=== PATIENT | female | born 1975 | race African-American/Black ===

== ENCOUNTER 2019-04-08 12:05 | Inpatient (IN) | payer BC, SELFPAY ==
--- OUTSIDE RECORDS SUMMARY | 2019-04-08 12:07 | XMS REPORT ---
:1975 [facility] Address [address] [place] [address] Care Team Providers Name Role Phone Unavailable Unavailable Unavailable Problems This patient has no known problems. Allergies, Adverse Reactions, Alerts This patient has no known allergies or adverse reactions. Medications This patient has no known medications.
[2019-04-08 13:05] LABS: Absolute Lymphocytes (CBC) 1.5 K/uL (0.7-4.9); Basophils % 0.7 % (0-1.3); Hematocrit 20.5 % (36.0-45.0); Lymphocytes % 23.8 % (15.3-44.8); MPV 8.6 fL (7.6-11.3); Protime INR 1.05; RBC Red Blood Cell Count 3.47 M/uL (3.86-4.86)
--- NOTE | 2019-04-08 13:07 | RAD REPORT ---
EXAM DESCRIPTION: RAD - Chest Single View - 04/08/2019 1:01 pm CLINICAL HISTORY: CHEST PAIN Chest pain. COMPARISON: Chest Single View dated 02/05/2017; Chest Single View dated 08/22/2015; Chest Single View dated 07/24/2015; CHEST PA AND LAT 2 VIEW dated 10/03/2014 FINDINGS: Portable technique limits examination quality. The lungs are grossly clear. The heart is normal in size. No displaced fractures. IMPRESSION: No acute intrathoracic process suspected.
[2019-04-08 13:18] LABS: ALT/SGPT 21 U/L (12-78); AST/SGOT 19 U/L (15-37); Albumin 3.5 g/dL (3.4-5.0); Alkaline Phosphatase 61 U/L (45-117); BUN Blood Urea Nitrogen 8 mg/dL (7-18); Bicarbonate 26 mmol/L (21-32); Bilirubin Direct < 0.1 mg/dL (0-0.2); Bilirubin Total 0.3 mg/dL (0.2-1.0); Glucose Level 84 mg/dL (74-106); Magnesium 2.1 mg/dL (1.8-2.4); NT PRO-BNP 65 pg/mL (<125); Potassium 3.8 mmol/L (3.5-5.1); Sodium Level 143 mmol/L (136-145); Troponin (Emerg Dept Use Only) < 0.02 ng/mL (0.0-0.045)
--- NOTE | 2019-04-08 14:13 | ER ---
Nurse's Notes [facility] Name: Sarika Napoles Age: 44 yrs Sex: Female : 1975 Arrival Date: 04/08/2019 Time: 12:06 Bed 8 Private MD: Diagnosis: Anemia in other chronic diseases classified elsewhere;Other chest pain;Dizziness and giddiness Presentation: 04/08 12:11 Presenting complaint: Patient states: i started having chest pain yesterday, it will go tw2 away but now i am having short of breath, and i get real short of breath just going a short distance, i passed out yesterday just sitting in bed because i woke up and didn't remember, i have also dizziness and i can feel and see that i am about to pass out and i just sit, i think my blood levels are low, left msg for Dr. Eng. Transition of care: patient was not received from another setting of care. Onset of symptoms was April 08, 2019. Risk Assessment: Do you want to hurt yourself or someone else? Patient reports no desire to harm self or others. Initial Sepsis Screen: Does the patient meet any 2 criteria? HR > 90 bpm. No. Patient's initial sepsis screen is negative. Does the patient have a suspected source of infection? No. Patient's initial sepsis screen is negative. Care prior to arrival: None. 12:11 Method Of Arrival: Ambulatory tw2 12:11 Acuity: JUSTIN 3 tw2 Triage Assessment: 12:09 General: Appears uncomfortable, well groomed, Behavior is calm, cooperative, tw2 appropriate for age. Pain: Complains of pain in chest. 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 - Social history:: Smoking status: Patient uses tobacco products, cigars, 'occasionally". - Ebola Screening: : Patient denies travel to an Ebola-affected area in the 21 days before illness onset. Screenin:29 Abuse screen: Denies threats or abuse. Nutritional screening: No deficits noted. tw2 Tuberculosis screening: No symptoms or risk factors identified. Fall Risk None identified. Assessment: 12:30 Also complains of shortness of breath. General: Appears in no apparent distress. sv comfortable, well developed, Behavior is calm, cooperative, appropriate for age. Pain: Complains of pain in chest Pain does not radiate. Pain currently is 7 out of 10 on a pain scale. Pain began 2-3 days ago. Is intermittent. Neuro: Level of Consciousness is awake, alert, obeys commands, Oriented to person, place, time, situation, Moves all extremities. Gait is steady, Reports dizziness. Cardiovascular: Heart tones S1 S2 present Patient's skin is warm and dry. Rhythm is sinus tachycardia. Respiratory: Reports shortness of breath on exertion Airway is patent Respiratory effort is even, unlabored, Respiratory pattern is regular, symmetrical, Breath sounds are clear bilaterally. EENT: Lid(s) pale. Derm: Skin is normal, black. 13:21 Reassessment: Patient appears in no apparent distress at this time. Patient and/or hb family updated on plan of care and expected duration. Pain level reassessed. Patient is alert, oriented x 3, equal unlabored respirations, skin warm/dry/pink. 15:00 Reassessment: Patient appears in no apparent distress at this time. Patient and/or sv family updated on plan of care and expected duration. Pain level reassessed. Patient is alert, oriented x 3, equal unlabored respirations, skin warm/dry/pink. 17:04 Reassessment: Patient appears in no apparent distress at this time. Patient and/or sv family updated on plan of care and expected duration. Pain level reassessed. Patient is alert, oriented x 3, equal unlabored respirations, skin warm/dry/pink. Vital Signs: 12:13 BP 122 / 53; Pulse 101; Resp 17; Temp 98.2(TE); Pulse Ox 100% on R/A; Weight 89.81 kg tw2 (R); Height 5 ft. 6 in. (167.64 cm); Pain 7/10; 13:04 BP 121 / 58; Pulse 91; Resp 16; Pulse Ox 100% ; sv 14:15 BP 116 / 53; Pulse 80; Resp 14; Pulse Ox 100% ; sv 15:00 BP 123 / 58; Pulse 79; Resp 14; Pulse Ox 100% ; sv 17:02 BP 115 / 58; Pulse 88 MON; Resp 17; Pulse Ox 100% on R/A; sv 12:13 Body Mass Index 31.96 (89.81 kg, 167.64 cm) tw2 17:02 Sinus Rhythm sv ED Course: 12:06 Patient arrived in ED. as 12:09 Arm band placed on. tw2 12:13 Triage completed. tw2 12:13 EKG completed in triage. Results shown to MD. tw2 12:16 Yon Eduardo MD is Attending Physician. tw4 12:16 Placed in gown. Bed in low position. tw2 12:29 Monique Fraga, HAMMAD is Primary Nurse. sv 12:30 Patient has correct armband on for positive identification. Call light in reach. sv social media developer on. Pulse ox on. NIBP on. Door closed. Warm blanket given. Head of bed elevated. 12:30 Initial lab(s) drawn, by me, sent to lab. T\\T\\S collected, blood band applied to patient. dh3 Inserted saline lock: 20 gauge in right antecubital area, using aseptic technique. Blood collected. 12:30 Patient maintains SpO2 saturation greater than 95% on room air. sv 12:36 X-ray(s) taken. sv 13:09 XRAY Chest (1 view) In Process Unspecified. EDMS 14:05 Prince Newman MD is Hospitalizing Provider. tw4 15:20 Consent for blood and/or blood product transfusion explained by staff, explained by sv physician, signed by patient. 15:20 Inserted saline lock: 20 gauge in left antecubital area, using aseptic technique. sv Flushed left antecubital with 5 ml normal saline. 15:21 IV discontinued, intact, No redness/swelling at site. Pressure dressing applied, to the sv R AC d/t pt request. 17:03 No provider procedures requiring assistance completed. sv Administered Medications: No medications were administered Outcome: 14:06 Decision to Hospitalize by Provider. tw4 17:03 Admitted to Tele accompanied by tech, via wheelchair, room 217, with chart, Report sv called to Red RN 17:03 Condition: stable 17:03 Instructed on the need for admit. 17:26 Patient left the ED. sv Signatures: Dispatcher [employer] EDMS Monique Fraga, RN RN sv Kev, Maral as Marva Nam RN RN Daylin Ortiz RN RN tw2 [facility] Yon Eduardo MD MD tw4 Corrections: (The following items were deleted from the chart) 12:41 12:30 Neuro: Level of Consciousness is awake, alert, obeys commands, Oriented to sv person, place, time, situation, Moves all extremities. Gait is steady, sv
--- NOTE | 2019-04-08 14:13 | EDPHYS ---
Physician Documentation [facility] Name: Sarika Napoles Age: 44 yrs Sex: Female : 1975 Arrival Date: 04/08/2019 Time: 12:06 Bed 8 Private MD: ED Physician Yon Eduardo HPI: 04/08 16:15 This 44 yrs old Black Female presents to ER via Ambulatory with complaints of Chest tw4 Pain, Dizziness. 16:15 The patient or guardian reports chest pain that is located primarily in the anterior tw4 chest wall. Onset: today. The pain does not radiate. Associated signs and symptoms: The patient has no apparent associated signs or symptoms. The chest pain is described as dull. Duration: The patient or guardian reports multiple episodes, that are intermittent, with no pattern. Modifying factors: The symptoms are alleviated by nothing. the symptoms are aggravated by nothing. The patient has experienced similar episodes in the past, a few times, and the symptoms today are exactly the same, to when the patient was apparently diagnosed with anemia. 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 - Social history:: Smoking status: Patient uses tobacco products, cigars, 'occasionally". - Ebola Screening: : Patient denies travel to an Ebola-affected area in the 21 days before illness onset. ROS: 16:16 Constitutional: Negative for fever, chills, and weight loss, Eyes: Negative for injury, tw4 pain, redness, and discharge, Cardiovascular: Negative for chest pain, palpitations, and edema, Respiratory: Negative for shortness of breath, cough, wheezing, and pleuritic chest pain, Abdomen/GI: Negative for abdominal pain, nausea, vomiting, diarrhea, and constipation. Exam: 22:00 Constitutional: This is a well developed, well nourished patient who is awake, alert, tw4 and in no acute distress. Head/Face: Normocephalic, atraumatic. 22:00 Chest/axilla: Normal chest wall appearance and motion. Nontender with no deformity. No lesions are appreciated. Cardiovascular: Regular rate and rhythm with a normal S1 and S2. No gallops, murmurs, or rubs. Normal PMI, no JVD. No pulse deficits. Respiratory: Lungs have equal breath sounds bilaterally, clear to auscultation and percussion. No rales, rhonchi or wheezes noted. No increased work of breathing, no retractions or nasal flaring. Abdomen/GI: Soft, non-tender, with normal bowel sounds. No distension or tympany. No guarding or rebound. No evidence of tenderness throughout. Back: No spinal tenderness. No costovertebral tenderness. Full range of motion. MS/ Extremity: Pulses equal, no cyanosis. Neurovascular intact. Full, normal range of motion. Neuro: Awake and alert, GCS 15, oriented to person, place, time, and situation. Cranial nerves II-XII grossly intact. Motor strength 5/5 in all extremities. Sensory grossly intact. Cerebellar exam normal. Normal gait. 22:00 Eyes: Conjunctiva: pale, bilaterally. Vital Signs: 12:13 BP 122 / 53; Pulse 101; Resp 17; Temp 98.2(TE); Pulse Ox 100% on R/A; Weight 89.81 kg tw2 (R); Height 5 ft. 6 in. (167.64 cm); Pain 7/10; 13:04 BP 121 / 58; Pulse 91; Resp 16; Pulse Ox 100% ; sv 14:15 BP 116 / 53; Pulse 80; Resp 14; Pulse Ox 100% ; sv 15:00 BP 123 / 58; Pulse 79; Resp 14; Pulse Ox 100% ; sv 17:02 BP 115 / 58; Pulse 88 MON; Resp 17; Pulse Ox 100% on R/A; sv 12:13 Body Mass Index 31.96 (89.81 kg, 167.64 cm) tw2 17:02 Sinus Rhythm sv MDM: 12:16 Patient medically screened. tw4 22:00 Differential diagnosis: acute myocardial infarction, acute pericarditis, anxiety, tw4 costochondritis, herpes zoster, pulmonary embolus, stable angina. HEART Score: History: Slightly Suspicious (0), ECG: Normal (0), Age: > 45 and < 65 years (1), Risk Factors: No Risk Factors Known (0), Troponin: > 1 and < 3 x normal limit (1), Total Score = 3. Data reviewed: vital signs, nurses notes. Data interpreted: Pulse oximetry: Interpretation: normal. Test interpretation: by ED physician or midlevel provider: ECG, plain radiologic studies. Counseling: I had a detailed discussion with the patient and/or guardian regarding: the historical points, exam findings, and any diagnostic results supporting the discharge/admit diagnosis, radiology results. Physician consultation: Prince Trent COFFMAN regarding admission, to the telemetry unit. patient's condition, and will see patient in ED. 04/08 12:18 Order name: Basic Metabolic Panel tw4 04/08 12:18 Order name: CBC with Diff tw4 04/08 12:18 Order name: LFT's tw 04/08 12:18 Order name: Magnesium tw 04/08 12:18 Order name: NT PRO-BNP tw4 04/08 12:18 Order name: PT-INR tw 04/08 12:18 Order name: Troponin (emerg Dept Use Only) [facility] 04/08 12:18 Order name: XRAY Chest (1 view) tw 04/08 12:18 Order name: EKG; Complete Time: 12:20 tw4 04/08 12:18 Order name: Cardiac monitoring; Complete Time: 12:40 tw4 04/08 12:18 Order name: EKG - Nurse/Tech; Complete Time: 12:40 tw4 04/08 12:37 Order name: Type And Screen sv 04/08 16:17 Order name: Transferrin Sat/Iron Binding [facility] 04/08 16:17 Order name: Ferritin [facility] 04/08 12:18 Order name: IV Saline Lock; Complete Time: 12:40 tw4 04/08 12:18 Order name: Labs collected and sent; Complete Time: 12:40 tw4 04/08 12:18 Order name: O2 Per Protocol; Complete Time: 12:40 tw4 04/08 12:18 Order name: O2 Sat Monitoring; Complete Time: 12:40 tw4 EC:00 Rhythm is regular. QRS [place] is Normal. GA interval is normal. QRS interval is normal. tw4 QT interval is normal. T waves are Normal. Clinical impression: NSR w/ Non-specific ST/T Changes. Interpreted by me. Administered Medications: No medications were administered Disposition: 04/08/19 14:06 Hospitalization ordered by Prince Trent for Inpatient Admission. Preliminary diagnosis are Anemia in other chronic diseases classified elsewhere, Other chest pain, Dizziness and giddiness. - Bed requested for Telemetry/MedSurg (Inpatient). - Status is Inpatient Admission. sv - Condition is Stable. - Problem is new. - Symptoms have improved. UTI on Admission? No Signatures: Dispatcher [employer] EDMS Hilda Salgado Monique Fraga RN RN Daylin Ortiz RN RN tw2 Yon Eduardo MD MD tw4 Corrections: (The following items were deleted from the chart) 15:44 14:06 Transfer - Initiate ordered. tw 16:44 14:06 Hospitalization Ordered by Prince Trent COFFMAN for Inpatient Admission. Preliminary bd diagnosis is Anemia in other chronic diseases classified elsewhere; Other chest pain; Dizziness and giddiness. Bed requested for Telemetry/MedSurg (Inpatient). Status is Inpatient Admission. Condition is Stable. Problem is new. Symptoms have improved. UTI on Admission? No. tw4 17:26 16:44 04/08/2019 14:06 Hospitalization Ordered by Prince Trent COFFMAN for Inpatient sv Admission. Preliminary diagnosis is Anemia in other chronic diseases classified elsewhere; Other chest pain; Dizziness and giddiness. Bed requested for Telemetry/MedSurg (Inpatient). Status is Inpatient Admission. Condition is Stable. Problem is new. Symptoms have improved. UTI on Admission? No. bd
[2019-04-08] MEDS ORDERED: DIPHENHYDRAMINE 50 MG/ML VIAL IV ONE (14:38)
[2019-04-08] MEDS ORDERED: ACETAMINOPHEN 500 MG TAB PO ONE (14:38)
--- NOTE | 2019-04-08 14:51 | EKG ---
Test Date: 2019-04-08 Test Time: 12:16:10 Package Delivery Driver: SUZY MEASUREMENT RESULTS: Intervals: Rate: 97 WV: 140 QRSD: 70 QT: 336 QTc: 426 [place]: P: 66 WV: 140 QRS: 39 T: 40 INTERPRETIVE STATEMENTS: Normal sinus rhythm Normal ECG Compared to ECG 02/05/2017 19:14:48 No significant changes Electronically Signed On 04-08-19 14:50:32 INDUSTRIAL METHODS CONSULTANT by Moi Ronquillo
[2019-04-08] MEDS ORDERED: NA CHLORIDE 0.9% 250 ML IV SCH (15:00)
--- NOTE | 2019-04-08 15:00 | P.HP ---
Certification for Inpatient Patient admitted to: Observation With expected LOS: <2 Midnights Practitioner: I am a practitioner with admitting privileges, knowledge of patient current condition, hospital course, and medical plan of care. Services: Services provided to patient in accordance with Admission requirements found in Title 42 Section 412.3 of the Code of Federal Regulations Patient History Date of Service: 04/08/19 Reason for admission: Fatigue and shortness of breath History of Present Illness: The patient is a 44-year-old female with a known past medical history of menorrhagia secondary to fibroid status post fibroid removal, chronic anemia who presents to the ER complaining of progressively worsening fatigue for the past week. Her last menstrual period was 1 month prior week ago. Since, she has been getting progressively weak with decreased exercise tolerance. She postponed the same. 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 Her symptoms progressed to the day of admission when she started experiencing chest pain and presyncopal episodes. She called her PCP to book an appointment but they were very busy during the holidays. Finally, patient decided to present to the ER. Pertinent negatives: No hematuria, no menorrhagia no hematochezia. She had 1 episode of vomiting on the day of admission. Allergies No Known Allergies Allergy (Verified 06/06/17 17:33) Home Medications: Topiramate [Topamax] 25 mg PO DAILY 02/06/12 Iron/FA/Vit B-Com W/C [Hemocyte Plus*] 106 mg PO DAILY 06/06/17 - Past Medical/Surgical History Diabetic: No -: anemia -: migrains -: cva 2009 -: hernia -: hernia repair -: fibroids removed - Social History Alcohol use: Yes CD- Drugs: No Caffeine use: Yes Review of Systems 10-point ROS is otherwise unremarkable (Review of system unremarkable except for HPI above) Physical Examination - Physical Exam General: Alert, In no apparent distress (Andres in no acute distress), Oriented x3 , Oriented x2, Oriented x1, Cooperative, Cachectic, Disheveled, Demented, Acute distress, Mild distress, Moderate distress, Severe distress, Confused, Delirious , Unresponsive, Comatose, Obese, Other HEENT: Atraumatic (Head atraumatic, normocephalic. Pupils equal and reactive to light. Conjunctival pallor) Gastrointestinal: Normal bowel sounds (Abdomen soft, nontender, nondistended. ) Musculoskeletal: No clubbing (Good range of motion in all extremities) Integumentary: No rashes (Skin warm and well perfused) Neurological: Normal gait (Neurologic exam grossly intact including speech and mental status) - Studies Laboratory Data (last 24 hrs) 04/08/19 12:30: PT 12.4, INR 1.05 04/08/19 12:30: WBC 6.3, Hgb 5.8 L*, Hct 20.5 L*, Plt Count 559 H 04/08/19 12:30: Sodium 143, Potassium 3.8, BUN 8, Creatinine 0.73, Glucose 84, Magnesium 2.1, Total Bilirubin 0.3, AST 19, ALT 21, Alkaline Phosphatase 61 Assessment and Plan - Problems (Diagnosis) (1) Symptomatic anemia Current Visit: Yes Status: Acute (2) Uterine fibroid Current Visit: Yes Status: Acute - Plan Impression Patient is a 44-year-old female with a known past medical history of acute blood loss anemia and due to urine fibroids status post resections with no postop complications except for chronic anemia. She presented the ER complaining of worsening symptoms of lethargy and fatigue. Found to have a hemoglobin of 5.4. Plan: 1. Admit to [facility] for observation 2. Transfuse 2 units of packed RBC and follow posttransfusion H&H q.8 hr 3. Monitor blood pressures. Will order orthostatic vitals post transfusion 4. Iron panel - Advance Directives Does patient have a Living Will: No Does patient have a Durable POA for Healthcare: No
[2019-04-08] MEDS ORDERED: NA CHLORIDE 0.9% 250 ML ONE ×2 (15:16→23:06)
[2019-04-08] MEDS ORDERED: ONDANSETRON 4 MG/2 ML VIAL IV PRN (17:03)
[2019-04-08 18:42] VITALS: BMI 31.9
[2019-04-08 19:23] LABS: Anisocytosis 2+; Blood Morphology Comment NOTED (NOT SEEN); Hypochromasia 2+; Platelet Estimate INCR; Poikilocytosis 2+; Urine White Blood Cell Casts OK
[2019-04-09 00:08] VITALS: O2SAT 98
[2019-04-09 06:19] LABS: Absolute Lymphocytes (CBC) 1.5 K/uL (0.7-4.9); Basophils % 0.8 % (0-1.3); Hematocrit 25.5 % (36.0-45.0); Lymphocytes % 25.6 % (15.3-44.8); MPV 8.7 fL (7.6-11.3); RBC Red Blood Cell Count 3.98 M/uL (3.86-4.86)
[2019-04-09 06:37] LABS: BUN Blood Urea Nitrogen 7 mg/dL (7-18); Bicarbonate 25 mmol/L (21-32); Glucose Level 91 mg/dL (74-106); Sodium Level 143 mmol/L (136-145)
[2019-04-09] MEDS ORDERED: FE SULF/FA/VIT B COMP & C TAB PO SCH (09:00)
[2019-04-09] MEDS ORDERED: TOPIRAMATE 25 MG TAB PO SCH (09:00)
[2019-04-09] MEDS ORDERED: ACETAMINOPHEN 500 MG TAB PO ONE (11:01)
--- NOTE | 2019-04-09 11:08 | P.DS ---
Admission Date: 04/09/19 Discharge Date: 04/09/19 Discharge Condition: GOOD Reason for Admission: Fatigue and shortness of breath - Problems (1) Symptomatic anemia Current Visit: Yes Status: Acute (2) Uterine fibroid Current Visit: Yes Status: Acute Brief History of Present Illness: The patient is a 44-year-old female with a known past medical history of menorrhagia secondary to fibroid status post fibroid removal, chronic anemia who presents to the ER complaining of progressively worsening fatigue for the past week. Her last menstrual period was 1 month prior week ago. Since, she has been getting progressively weak with decreased exercise tolerance. She postponed the same. 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 Her symptoms progressed to the day of admission when she started experiencing chest pain and presyncopal episodes. She called her PCP to book an appointment but they were very busy during the holidays. Finally, patient decided to present to the ER. Pertinent negatives: No hematuria, no menorrhagia no hematochezia. She had 1 episode of vomiting on the day of admission. Hospital Course: Patient did well during his hospital stay. She was transfused for a hemoglobin of 5.4 and responded appropriately. Her hemoglobin at the time of discharge was 7.9. She had no classic symptoms of symptomatic anemia except for headache. No overt bleeding was noted. Workup during this admission revealed evidence of iron deficiency anemia. She is already taking iron supplements at home. I counseled the patient to follow up with her PCP on April 11 for scheduled outpatient appointment. Vital Signs/Physical Exam: Temp Pulse Resp BP Pulse Ox 97.2 F 71 17 128/58 L 98 04/09/19 08:00 04/09/19 08:00 04/09/19 08:00 04/09/19 08:00 04/09/19 08:00 General: Alert, In no apparent distress, Cooperative HEENT: Atraumatic, Normocephalic, EOMI Neck: Supple Respiratory: Clear to auscultation bilaterally, Normal air movement Cardiovascular: No edema, Regular rate/rhythm Gastrointestinal: Normal bowel sounds, Soft and benign, Non-distended Musculoskeletal: No clubbing, No swelling, No contractures Integumentary: Warmth Neurological: Normal speech, Normal tone, Normal affect Laboratory Data at Discharge: WBC 5.8 K/uL (4.3-10.9) 04/09/19 05:49 Hgb 7.9 g/dL (12.0-15.0) L* 04/09/19 05:49 Hct 25.5 % (36.0-45.0) L D 04/09/19 05:49 Plt Count 449 K/uL (152-406) H 04/09/19 05:49 PT 12.4 SECONDS (9.5-12.5) 04/08/19 12:30 INR 1.05 04/08/19 12:30 Sodium 143 mmol/L (136-145) 04/09/19 05:49 Potassium 4.0 mmol/L (3.5-5.1) 04/09/19 05:49 BUN 7 mg/dL (7-18) 04/09/19 05:49 Creatinine 0.74 mg/dL (0.55-1.3) 04/09/19 05:49 Glucose 91 mg/dL (74-106) 04/09/19 05:49 Magnesium 2.1 mg/dL (1.8-2.4) 04/08/19 12:30 Total Bilirubin 0.3 mg/dL (0.2-1.0) 04/08/19 12:30 AST 19 U/L (15-37) 04/08/19 12:30 ALT 21 U/L (12-78) 04/08/19 12:30 Alkaline Phosphatase 61 U/L (45-117) 04/08/19 12:30 Home Medications: Topiramate [Topamax] 25 mg PO DAILY PRN 02/06/12 Iron/FA/Vit B-Com W/C [Hemocyte Plus*] 106 mg PO BID 06/06/17 Diet: Regular
[2019-04-09] MEDS ORDERED: ACETAMINOPHEN 500 MG TAB ONE (11:11)
[2019-04-09 12:11] VITALS: BP 116/58; TEMP 97.5
== END 2019-04-09 12:14 | disposition home or self-care (01) | DRG 812 ==
LOC: ER 12:05 → ERHOLD 14:29 → 2ND 17:03 → OBSVTOIN 04-09 07:47
PROVIDERS: ADMIT Internal Medicine; ATTEND Internal Medicine
DX: D64.9 Anemia, unspecified (principal); D25.9 Leiomyoma of uterus, unspecified; Z86.73 Personal history of transient ischemic attack (TIA), and cerebral infarction without residual deficits
CPT/HCPCS: 36415; 71045; 80048; 80076; 82728; 83540; 83735; 83880; 84466; 84484; 85025; 85610; 86850; 86900; 86901; 93005; 99285; G0378; J1200; J7030; P9016

== ENCOUNTER 2021-08-06 19:42 | Observation (INO) | payer OTHER, SELFPAY ==
--- OUTSIDE RECORDS SUMMARY | 2021-08-06 19:45 | XMS REPORT | Continuity of Care Document ---
:[address] [facility] t Address [address] [place] [address] Care Team Providers Name Role Phone Eng Primary Care Physician Danielle TESFAYE Attending Clinician Lindsey COFFMAN, Rp Attending Clinician ANAY PORTILLO Attending Clinician Unavailable Doctor Unassigned, Name Attending Clinician Unavailable Only, Test Attending Clinician Unavailable Tahir COFFMAN, S Attending Clinician Payers Payer Name Policy Type Policy Number Effective Date Expiration Date S ource Problems Condition Condition Condition Status Onset Resolution Last Treating Co mments Source Name Details Category Date Date Treatment Clinician Date Anemia Anemia Disease Active NPI:183 9-30 [id number] 00:00: 00 Obesity Obesity Disease Active NPI:183 (BMI (BMI 6-07 [id number] 30-39.9) 30-39.9) 00:00: 00 Iron Iron Disease Active NPI:183 deficiency deficiency 06-21 anemia due anemia due 00:00: to chronic to chronic 00 blood loss blood loss History of History of Disease Active N PI:183 stroke stroke 06-21 [id number] 00:00: 00 Urinary Urinary Disease Active NPI:183 urgency urgency 06-21 [id number] 00:00: 00 Elevated Elevated Disease Active 2016-04 NPI:1 83 CA-125 CA-125 0-25 4269736 00:00: 00 Fibroids, Fibroids, Disease Active 2016-04 NPI :183 submucosal submucosal 0-25 13 22653 00:00: 00 Iron Iron Disease Active 2016-04 NPI:183 deficiency deficiency 0-17 13 27428 anemia, anemia, 00:00: unspecifie unspecifie 00 d iron d iron deficiency deficiency anemia anemia type type Urinary Urinary Disease Active 2016-04 NPI:183 frequency frequency 0-12 1318 781 00:00: 00 Intramural Intramural Disease Active 2016-04 N PI:183 leiomyoma leiomyoma 0-12 1318 781 of uterus of uterus 00:00: 00 H/O tubal H/O tubal Disease Active 2016-04 NPI :183 ligation ligation 0-12 [id number] 1 00:00: 00 History of History of Disease Active 2016-04 N PI:183 myomectomy myomectomy 0-12 13 09492 00:00: 00 Anemia, Anemia, Disease Resolve 2016-042017-06-21 2017-06-21 NPI:183 unspecifie unspecifie d 0-12 00:00:00 22:03:37 [id number] d type d type 00:00: 00 Allergies, Adverse Reactions, Alerts Allergy Allergy Status Severity Reaction(s) Onset Inactive Treating Comm ents Source Name Type Date Date Clinician NO KNOWN Drug Active NPI:183 ALLERGIE Class [id number] S Social History Social Habit Start Date Stop Date Quantity Comments Source History SDOH NPI:[id number] Alcohol Frequency History SDOH NPI:[id number] 81 Alcohol Std Drinks History SDOH NPI:[id number] 81 Alcohol Binge Exposure to Not sure NPI:[id number] 1 SARS-CoV-2 (event) History of tobacco Cigar Smoker use Alcohol intake 2020-08-06 2020-08-06 Current drinker of [facility] I:[id number] 00:00:00 00:00:00 alcohol (finding) Tobacco Comment 2017-09-06 2017-09-06 Occasional smoker [facility] I:[id number] 00:00:00 00:00:00 Alcohol Comment 2017-01-12 2017-01-12 occasional / NPI:557 [id number] 00:00:00 00:00:00 social Tobacco use and 2016-12-14 2016-12-14 Current user NPI:880 [id number] exposure 00:00:00 00:00:00 Sex [birth year] NPI:[id number] 48967 00:00:00 00:00:00 Smoking Status Start Date Stop Date Source Light tobacco smoker 2018-03-08 00:00:00 NPI:148 [id number] Medications Ordered Filled Start Stop Current Ordering Indication Dosage Frequency Signature Comments Components Source Medication Medication Date Date Medication? Clinician (SIG) Name Name losartan 2020-04 Yes [id number] 25mg Take 1 NPI:183 mg tablet 0-[place] [id number] 00:00: mouth 00 daily. losartan 2020-04 Yes [id number] 25mg Take 1 NPI:183 mg tablet 0-[place] [id number] 00:00: mouth 00 daily. losartan 2020-04 Yes [id number] 25mg Take 1 NPI:183 mg tablet 0-[place] [id number] 81 00:00: mouth 00 daily. losartan 2020-04 Yes [id number] 25mg Take 1 NPI:183 mg tablet 0-[place] [id number] 81 00:00: mouth 00 daily. losartan 2020-04 Yes [id number] 25mg Take 1 NPI:183 mg tablet 0-[place] [id number] 00:00: mouth 00 daily. losartan 2020-04 Yes [id number] 25mg Take 1 NPI:183 mg tablet 0-[place] [id number] 81 00:00: mouth 00 daily. meclizine 2020-04 Yes 12.5mg Take 12.5 N PI:183 12.5 mg 0-03 mg by [id number] tablet 16:34: mouth 3 28 (three) times daily as needed. topiramate 2020-04 Yes 50mg Take 50 mg N PI:183 50 mg 0-03 by mouth [id number] tablet 16:34: at 28 bedtime. clopidogrel 2020-04 Yes 75mg Take 75 mg NPI:183 75 mg 0-03 by mouth [id number] tablet 16:34: daily. 28 Provider told patient to take PRN? meclizine 2020-04 Yes 12.5mg Take 12.5 N PI:183 12.5 mg 0-03 mg by [id number] tablet 16:34: mouth 3 28 (three) times daily as needed. topiramate 2020-04 Yes 50mg Take 50 mg N PI:183 50 mg 0-03 by mouth [id number] tablet 16:34: at 28 bedtime. clopidogrel 2020-04 Yes 75mg Take 75 mg NPI:183 75 mg 0-03 by mouth [id number] tablet 16:34: daily. 28 Provider told patient to take PRN? meclizine 2020-04 Yes 12.5mg Take 12.5 N PI:183 12.5 mg 0-03 mg by [id number] tablet 16:34: mouth 3 28 (three) times daily as needed. topiramate 2020-04 Yes 50mg Take 50 mg N PI:183 50 mg 0-03 by mouth [id number] tablet 16:34: at 28 bedtime. clopidogrel 2020-04 Yes 75mg Take 75 mg NPI:183 75 mg 0-03 by mouth [id number] tablet 16:34: daily. 28 Provider told patient to take PRN? meclizine 2020-04 Yes 12.5mg Take 12.5 N PI:183 12.5 mg 0-03 mg by [id number] tablet 16:34: mouth 3 28 (three) times daily as needed. topiramate 2020-04 Yes 50mg Take 50 mg N PI:183 50 mg 0-03 by mouth [id number] tablet 16:34: at 28 bedtime. clopidogrel 2020-04 Yes 75mg Take 75 mg NPI:183 75 mg 0-03 by mouth [id number] tablet 16:34: daily. 28 Provider told patient to take PRN? meclizine 2020-04 Yes 12.5mg Take 12.5 N PI:183 12.5 mg 0-03 mg by [id number] tablet 16:34: mouth 3 28 (three) times daily as needed. topiramate 2020-04 Yes 50mg Take 50 mg N PI:183 50 mg 0-03 by mouth [id number] tablet 16:34: at 28 bedtime. clopidogrel 2020-04 Yes 75mg Take 75 mg NPI:183 75 mg 0-03 by mouth [id number] tablet 16:34: daily. 28 Provider told patient to take PRN? meclizine 2020-04 Yes 12.5mg Take 12.5 N PI:183 12.5 mg 0-03 mg by [id number] tablet 16:34: mouth 3 28 (three) times daily as needed. topiramate 2020-04 Yes 50mg Take 50 mg N PI:183 50 mg 0-03 by mouth [id number] tablet 16:34: at 28 bedtime. clopidogrel 2020-04 Yes 75mg Take 75 mg NPI:183 75 mg 0-03 by mouth [id number] tablet 16:34: daily. 28 Provider told patient to take PRN? atorvastati 2020-04 Yes [id number] 10mg Take 1 NPI:183 n 10 mg 0-03 tablet by [id number] tablet 00:00: mouth at 00 bedtime. atorvastati 2020-04 Yes [id number] 10mg Take 1 NPI:183 n 10 mg 0-03 tablet by [id number] tablet 00:00: mouth at 00 bedtime. atorvastati 2020-04 Yes [id number] 10mg Take 1 NPI:183 n 10 mg 0-03 tablet by [id number] tablet 00:00: mouth at 00 bedtime. atorvastati 2020-04 Yes [id number] 10mg Take 1 NPI:183 n 10 mg 0-03 tablet by [id number] tablet 00:00: mouth at 00 bedtime. atorvastati 2020-04 Yes [id number] 10mg Take 1 NPI:183 n 10 mg 0-03 tablet by [id number] tablet 00:00: mouth at 00 bedtime. atorvastati 2020-04 Yes [id number] 10mg Take 1 NPI:183 n 10 mg 0-03 tablet by [id number] tablet 00:00: mouth at 00 bedtime. meclizine 2017-04 Yes 12.5mg Take 12.5 N PI:183 12.5 mg 2-07 mg by [id number] tablet 00:02: mouth 3 28 (three) times daily as needed. meclizine 2017-04 Yes 12.5mg Take 12.5 N PI:183 12.5 mg 2-07 mg by [id number] tablet 00:02: mouth 3 28 (three) times daily as needed. acetaminoph 2017-04 Yes Cough 2 - 1 [facility] I:183 en-codeine 2-06 tab Every 1318 781 300-30 mg 00:00: 4hrs as tablet 00 needed for pain or cough requiring narcotic acetaminoph 2017-04 Yes Cough 2 - [facility] I:183 en-codeine 2-06 tab Every 1318 781 300-30 mg 00:00: 4hrs as tablet 00 needed for pain or cough requiring narcotic clopidogrel Yes 75mg Take 75 mg NPI:183 75 mg 6-28 by mouth [id number] tablet 20:21: daily. 12 topiramate 0 Yes 50mg Take 50 mg N PI:183 50 mg 6-28 by mouth [id number] tablet 20:21: at 12 bedtime. clopidogrel Yes 75mg Take 75 mg NPI:183 75 mg 6-28 by mouth [id number] tablet 20:21: daily. 12 topiramate Yes 50mg Take 50 mg N PI:183 50 mg 6-28 by mouth [id number] tablet 20:21: at 12 bedtime. HEMOCYTE-PL Yes TAKE ONE [facility] I:183 US 106 mg 2-22 CAPSULE BY 1318 781 iron- 1 mg 00:00: MOUTH Cap 00 EVERY DAY HEMOCYTE-PL Yes TAKE ONE [facility] I:183 US 106 mg 2-22 CAPSULE BY 1318 781 iron- 1 mg 00:00: MOUTH Cap 00 EVERY DAY HEMOCYTE-PL Yes TAKE ONE [facility] I:183 US 106 mg 2-22 CAPSULE BY 1318 781 iron- 1 mg 00:00: MOUTH Cap 00 EVERY DAY HEMOCYTE-PL 0 Yes TAKE ONE [facility] I:183 US 106 mg 2-22 CAPSULE BY 1318 781 iron- 1 mg 00:00: MOUTH Cap 00 EVERY DAY HEMOCYTE-PL 0 Yes TAKE ONE [facility] I:183 US 106 mg 2-22 CAPSULE BY 1318 781 iron- 1 mg 00:00: MOUTH Cap 00 EVERY DAY HEMOCYTE-PL Yes TAKE ONE [facility] I:183 US 106 mg 2-22 CAPSULE BY 1318 781 iron- 1 mg 00:00: MOUTH Cap 00 EVERY DAY HEMOCYTE-PL 2017-0 Yes TAKE ONE [facility] I:183 US 106 mg 2-22 CAPSULE BY 1318 781 iron- 1 mg 00:00: MOUTH Cap 00 EVERY DAY HEMOCYTE-PL 2017-0 Yes TAKE ONE [facility] I:183 US 106 mg 2-22 CAPSULE BY 1318 781 iron- 1 mg 00:00: MOUTH Cap 00 EVERY DAY Immunizations Ordered Immunization Filled Immunization Date Status Commen ts Source Name Name Influenza Virus 2017-01-12 Completed NPI:[id number] Vaccine Quad IM 3+ 00:00:00 YRS TDAP 2017-01-12 Completed 00:00:00 Influenza Virus 2017-01-12 Completed NPI:[id number] 31647 Vaccine Quad IM 3+ 00:00:00 YRS TDAP 2017-01-12 Completed 00:00:00 Influenza Virus 2017-01-12 Completed NPI:20569 57889 Vaccine Quad IM 3+ 00:00:00 YRS TDAP 2017-01-12 Completed 00:00:00 Influenza Virus 2017-01-12 Completed NPI:58933 74955 Vaccine Quad IM 3+ 00:00:00 YRS TDAP 2017-01-12 Completed 00:00:00 Influenza Virus 2017-01-12 Completed NPI:[id number] Vaccine Quad IM 3+ 00:00:00 YRS TDAP 2017-01-12 Completed 00:00:00 Influenza Virus 2017-01-12 Completed NPI:[id number] [id number] Vaccine Quad IM 3+ 00:00:00 YRS TDAP 2017-01-12 Completed 00:00:00 Influenza Virus 2017-01-12 Completed NPI:95364 07984 Vaccine Quad IM 3+ 00:00:00 YRS TDAP 2017-01-12 Completed 00:00:00 Influenza Virus 2017-01-12 Completed NPI:[id number] [id number] Vaccine Quad IM 3+ 00:00:00 YRS TDAP 2017-01-12 Completed 00:00:00 Vital Signs Vital Name Observation Time Observation Value Comments Source Systolic blood 2021-06-07 17:40:00 117 mm[Hg] NPI:18 [id number] pressure 1 Diastolic blood 2021-06-07 17:40:00 66 mm[Hg] NPI:1 [id number] pressure 1 Heart rate 2021-06-07 17:40:00 105 /min NPI:1831 29839 1 Body temperature 2021-06-07 17:33:00 36.22 Sangeetha NPI: [id number] 1 Respiratory rate 2021-06-07 17:33:00 18 /min NPI: [id number] 1 Body height 2021-06-07 17:33:00 169.2 cm NPI:1831 36169 1 Body weight 2021-06-07 17:33:00 90.22 kg Ht & Wt verified NPI: [id number] by Delmy Samson, 1 RN & Nelly HEDRICK BMI 2021-06-07 17:33:00 31.51 kg/m2 NPI:1831 74530 1 Oxygen saturation 2021-06-07 17:33:00 100 /min NPI :[id number] in Arterial blood 1 by Pulse oximetry Procedures Procedure Date / Time Performed Performing Clinician [facility] e PATIENT QUESTIONNAIRE 2021-06-07 06:01:00 Doctor Unassigned, No Name ASSIGNMENT OF BENEFITS 2020-08-06 16:09:26 Doctor Unassigned, No Name Plan of Care Planned Activity Planned Date Details Comments Source Future Scheduled 2027-01-12 DTaP,Tdap,and Td NPI:751 [id number] Test 00:00:00 Vaccines (2 - Td) [code = DTaP,Tdap,and Td Vaccines (2 - Td)] Future Scheduled 2027-01-12 DTaP,Tdap,and Td NPI:421 [id number] Test 00:00:00 Vaccines (2 - Td) [code = DTaP,Tdap,and Td Vaccines (2 - Td)] Future Scheduled 2024-02-24 Screening for NPI:[id number] [id number] Test 00:00:00 malignant neoplasm of colon (procedure) [code = 573150998] Future Scheduled 2024-02-24 Screening for NPI:[id number] [id number] Test 00:00:00 malignant neoplasm of colon (procedure) [code = 609835075] Future Scheduled 2020-12-02 INFLUENZA VACCINE NPI:18 [id number] Test 00:00:00 (Season Ended) [code = INFLUENZA VACCINE (Season Ended)] Future Scheduled 2020-12-02 INFLUENZA VACCINE NPI:18 [id number] Test 00:00:00 (Season Ended) [code = INFLUENZA VACCINE (Season Ended)] Diagnostic Test 2020-08-06 COVID-19 (MOLECULAR Expected: NPI:1 [id number] Pending 00:00:00 TESTING 08/06/2020, NUCLEIC ACID Expires: AMPLIFICATION) 08/06/2021 [code = 30035-8] Future Scheduled 2020-01-13 Screening for NPI:[id number] 6390 Test 00:00:00 malignant neoplasm of cervix (procedure) [code = 726371381] Future Scheduled 2020-01-13 Screening for NPI:[id number] 6196 Test 00:00:00 malignant neoplasm of cervix (procedure) [code = 768142838] Future Scheduled 2018-01-25 Screening for NPI:[id number] 9371 Test 00:00:00 malignant neoplasm of breast (procedure) [code = 384878961] Future Scheduled 2018-01-25 Screening for NPI:[id number] 3567 Test 00:00:00 malignant neoplasm of breast (procedure) [code = 395945033] Future Scheduled 1990 SARS-CoV-2 NPI:[id number] 781 Test 00:00:00 (COVID-19) Vaccine (1) [code = SARS-CoV-2 (COVID-19) Vaccine (1)] Future Scheduled 1990 SARS-CoV-2 NPI:[id number] 781 Test 00:00:00 (COVID-19) Vaccine (1) [code = SARS-CoV-2 (COVID-19) Vaccine (1)] Future Scheduled 1986 Depression NPI:[id number] 781 Test 00:00:00 screening (procedure) [code = 959841756] Future Scheduled 1986 Depression NPI:[id number] 781 Test 00:00:00 screening (procedure) [code = 327424304] Encounters Start End Encounter Admission Attending Care Care Encounter Source Date/Time Date/Time Type Type Clinicians Facility Department ID 2021-06-11 2021-06-11 Patient Greta Santos [id number] NPI:183 00:00:00 00:00:00 Secure Msg H [id number] [id number] [facility] 4.2.7.2.686 [id number] 2021-06-10 2021-06-10 Telephone Greta Santos [id number] NPI:183 00:00:00 00:00:00 H 350.1.13.10 [id number] [facility] 4.2.7.2.686 [id number] 2021-06-09 2021-06-09 Telephone Greta Santos WAYNE 1.2.840.114 [id number] NPI:183 00:00:00 00:00:00 H 350.1.13.10 [id number] [facility] 4.2.7.2.686 [id number] 2021-06-07 2021-06-07 Office Tiffani Portillo 1.2.840.114 [id number] NPI:183 11:20:00 12:34:55 Visit H 350.1.13.10 [id number] [facility] 4.2.7.2.686 [id number] 2021-06-07 2021-06-07 Outpatient R TIFFANI PORTILLO [facility] [id number] NPI:183 11:20:00 12:34:55 [id number] 2021-06-07 2021-06-07 Orders Doctor SKIP 1.2.840.114 [id number] NPI:183 00:00:00 00:00:00 Only Unassigned, CARLOS 350.1.13.10 [id number] [facility] 4.2.7.2.686 [id number] Results This patient has no known results.
[2021-08-06 20:51] LABS: Lymphocytes % 16.2 % (15.3-44.8); RBC Red Blood Cell Count 3.65 M/uL (3.86-4.86)
[2021-08-06 20:53] LABS: Protime INR 1.12
[2021-08-06] MEDS ORDERED: MORPHINE 2 MG/ML SYR ONE (21:07)
[2021-08-06] MEDS ORDERED: ONDANSETRON 4 MG/2 ML VIAL ONE (21:07)
[2021-08-06 21:10] LABS: ALT/SGPT 20 U/L (12-78); AST/SGOT 14 U/L (15-37); Albumin 3.3 g/dL (3.4-5.0); Alkaline Phosphatase 57 U/L (45-117); BUN Blood Urea Nitrogen 12 mg/dL (7-18); Bicarbonate 26 mmol/L (21-32); Bilirubin Total 0.2 mg/dL (0.2-1.0); Glomerular Filtration Rate > 90 mL/min (=/>90); Glucose Level 116 mg/dL (74-106); Lipase 144 U/L (73-393); NT PRO-BNP 21 pg/mL (<125); Potassium 3.7 mmol/L (3.5-5.1); Protein, Total 7.3 g/dL (6.4-8.2); Sodium Level 140 mmol/L (136-145); Troponin High Sensitivity 3.9 pg/mL (<58.9)
[2021-08-06 21:21] LABS: Hematocrit 20.8 % (36.0-45.0)
--- NOTE | 2021-08-06 21:22 | RAD REPORT ---
EXAM DESCRIPTION: Mirna Single View08/06/2021 9:12 pm CLINICAL HISTORY: Chest pain COMPARISON: 2019 FINDINGS: The lungs appear clear of acute infiltrate. The heart is normal size IMPRESSION: No acute abnormalities displayed
[2021-08-06 21:41] LABS: Bilirubin Direct < 0.1 mg/dL (0-0.2)
[2021-08-06 22:15] LABS: Anisocytosis 2+; Blood Morphology Comment NOTED (NOT SEEN); Elliptocytes 3+; Hypochromasia 3+; Macrocytosis 1+; Ovalocytes 2+; Platelet Estimate INCR; Platelets, Giant FEW; Poikilocytosis 2+; Stomatocytes 1+; Teardrop Cell 2+; White Blood Cell Scan OK (OK)
--- NOTE | 2021-08-06 22:31 | ER ---
Nurse's Notes [facility] [place] Name: Sarika Napoles Age: 46 yrs Sex: Female : 1975 Arrival Date: 08/06/2021 Time: 19:47 Bed 16 Private MD: Diagnosis: Chest pain, unspecified;Anemia, unspecified-symptomatic Presentation: 08/06 19:49 Chief complaint: EMS states: Chest pain started at 1845 , thought it was gas pain so ke1 she tried to burp but nothing helped. Coronavirus screen: Vaccine status: Patient reports receiving the 2nd dose of the covid vaccine. Ebola Screen: No symptoms or risks identified at this time. Initial Sepsis Screen: Does the patient meet any 2 criteria? No. Patient's initial sepsis screen is negative. Does the patient have a suspected source of infection? No. Patient's initial sepsis screen is negative. Risk Assessment: Do you want to hurt yourself or someone else? Patient reports no desire to harm self or others. Onset of symptoms was August 06, 2021 at 18:45. 19:49 Method Of Arrival: EMS ke1 19:49 Acuity: JUSTIN 3 ke1 Triage Assessment: 19:55 General: Appears Behavior is appropriate for age. Pain: Complains of pain in chest Pain ke1 radiates to face. Cardiovascular: Capillary refill < 3 seconds Patient's skin is warm and dry. Pulses are all present. Respiratory: Airway is patent Respiratory effort is even, unlabored, Respiratory pattern is regular, symmetrical. Historical: - Allergies: 19:55 No Known Allergies; ke1 - PMHx: 19:55 Anemia; CVA; Migraines; Hypertensive disorder; ke1 - Immunization history:: Flu vaccine is up to date. - Social history:: Smoking status: cigars ( 2/month). Screenin:57 Abuse screen: Denies threats or abuse. Nutritional screening: No deficits noted. ke1 Tuberculosis screening: No symptoms or risk factors identified. Fall Risk No fall in past 12 months (0 pts). Secondary diagnosis (15 points) IV access (20 points). Ambulatory Aid- None/Bed Rest/Nurse Assist (0 pts). Gait- Normal/Bed Rest/Wheelchair (0 pts) Mental Status- Oriented to own ability (0 pts). Total Mendoza Fall Scale indicates No Risk (0-24 pts). Vital Signs: 19:49 BP 141 / 58; Pulse 88; Resp 18; Temp 98.6; Pulse Ox 100% on R/A; Weight 87.09 kg; ke1 Height 5 ft. 6 in. (167.64 cm); Pain 8/10; 19:49 Body Mass Index 30.99 (87.09 kg, 167.64 cm) [facility] ED Course: 19:47 Patient arrived in ED. 19:47 Trevor Boyd MD is Attending Physician. [facility] 19:49 Kristy Graham, RN is Primary Nurse. [facility] 19:55 Triage completed. 1 19:57 Placed in gown. Bed in low position. Call light in reach. Side rails up X 1. Cardiac ke1 monitor on. Pulse ox on. NIBP on. 20:36 Missed attempt(s): 20 gauge in right antecubital area. ke1 20:36 Inserted saline lock: 22 gauge in left antecubital area, using aseptic technique. [facility] 21:14 XRAY Chest (1 view) In Process Unspecified. EDDC 22:29 Kiet March is Hospitalizing Provider. [facility] 23:26 Arm band placed on right wrist. [facility] Administered Medications: 21:06 Drug: Zofran (Ondansetron) 4 mg Route: IVP; Site: left antecubital; ke1 21:07 Drug: morphine 2 mg Route: IVP; Site: left antecubital; [facility] Outcome: 22:30 Decision to Hospitalize by Provider. [facility] 08/07 00:09 Patient left the ED. 1 Signatures: Dispatcher [employer] EDDC Sharmin Sher RN RN 1 Trevor Boyd MD MD [facility] Niecy Handy Kristy Graham RN RN [facility]
--- NOTE | 2021-08-06 22:31 | EDPHYS ---
Physician Documentation [facility] Name: Sarika Napoles Age: 46 yrs Sex: Female : 1975 Arrival Date: 08/06/2021 Time: 19:47 Bed 16 Private MD: ED Physician Trevor Boyd HPI: 08/06 20:08 This 46 yrs old Black Female presents to ER via EMS with complaints of Chest Pain > 30 mh7 y/o. 20:08 The patient or guardian reports chest pain that is located primarily in the substernal mh7 area. Onset: today, 1.5 hour(s) ago. The pain radiates to back. Associated signs and symptoms: Pertinent positives: nausea, shortness of breath, vomiting, Pertinent negatives: abdominal pain, cough, diaphoresis, dizziness, headache, lower extremity pain, lower extremity swelling, lightheadedness, near syncope, palpitations, recent travel, syncope. The chest pain is described as a pressure. Duration: The patient or guardian reports multiple episodes, that are intermittent, that wax and wane, with no pattern. Modifying factors: The symptoms are alleviated by nothing. the symptoms are aggravated by nothing. Severity of pain: At its worst the pain was moderate today, in the emergency department the pain has improved moderately. Historical: - Allergies: 19:55 No Known Allergies; ke1 - PMHx: 19:55 Anemia; CVA; Migraines; Hypertensive disorder; ke1 - Immunization history:: Flu vaccine is up to date. - Social history:: Smoking status: cigars ( 2/month). ROS: 20:08 Constitutional: Negative for fever, chills, and weight loss, Eyes: Negative for injury, mh7 pain, redness, and discharge, ENT: Negative for injury, pain, and discharge, Neck: Negative for injury, pain, and swelling. 20:08 Back: Negative for injury and pain, : Negative for injury, bleeding, discharge, and swelling, MS/Extremity: Negative for injury and deformity, Skin: Negative for injury, rash, and discoloration, Neuro: Negative for headache, weakness, numbness, tingling, and seizure, Psych: Negative for depression, anxiety, suicide ideation, homicidal ideation, and hallucinations, Allergy/Immunology: Negative for hives, rash, and allergies, Endocrine: Negative for neck swelling, polydipsia, polyuria, polyphagia, and marked weight changes, Hematologic/Lymphatic: Negative for swollen nodes, abnormal bleeding, and unusual bruising. 20:08 Abdomen/GI: Negative for abdominal pain, diarrhea, constipation, abdominal cramps, abdominal distension, anorexia, dysphagia, hematemesis, black/tarry stool, rectal pain, rectal bleeding, bowel incontinence, flatulence. Exam: 20:08 Constitutional: This is a well developed, well nourished patient who is awake, alert, mh7 and in no acute distress. Head/Face: Normocephalic, atraumatic. Eyes: Pupils equal round and reactive to light, extra-ocular motions intact. Lids and lashes normal. Conjunctiva and sclera are non-icteric and not injected. Cornea within normal limits. Periorbital areas with no swelling, redness, or edema. Neck: Trachea midline, no thyromegaly or masses palpated, and no cervical lymphadenopathy. Supple, full range of motion without nuchal rigidity, or vertebral point tenderness. No Meningismus. Chest/axilla: Normal chest wall appearance and motion. Nontender with no deformity. No lesions are appreciated. Cardiovascular: Regular rate and rhythm with a normal S1 and S2. No gallops, murmurs, or rubs. Normal PMI, no JVD. No pulse deficits. Respiratory: Lungs have equal breath sounds bilaterally, clear to auscultation and percussion. No rales, rhonchi or wheezes noted. No increased work of breathing, no retractions or nasal flaring. Abdomen/GI: Soft, non-tender, with normal bowel sounds. No distension or tympany. No guarding or rebound. No evidence of tenderness throughout. Back: No spinal tenderness. No costovertebral tenderness. Full range of motion. Skin: Warm, dry with normal turgor. Normal color with no rashes, no lesions, and no evidence of cellulitis. MS/ Extremity: Pulses equal, no cyanosis. Neurovascular intact. Full, normal range of motion. Neuro: Awake and alert, GCS 15, oriented to person, place, time, and situation. Cranial nerves II-XII grossly intact. Motor strength 5/5 in all extremities. Sensory grossly intact. Cerebellar exam normal. Normal gait. Psych: Awake, alert, with orientation to person, place and time. Behavior, mood, and affect are within normal limits. 20:08 ECG was reviewed by the Attending Physician. [facility] Vital Signs: 19:49 BP 141 / 58; Pulse 88; Resp 18; Temp 98.6; Pulse Ox 100% on R/A; Weight 87.09 kg; ke1 Height 5 ft. 6 in. (167.64 cm); Pain 8/10; 19:49 Body Mass Index 30.99 (87.09 kg, 167.64 cm) 1 MDM: 22:28 Differential diagnosis: acute myocardial infarction, acute pericarditis, anxiety, 7 coronary artery disease chest wall pain, congestive heart failure costochondritis, esophagitis, gastritis, gastroesophageal reflux disease (GERD), peptic ulcer disease, pericarditis, pleurisy, pneumonia, pneumothorax. HEART Score: History: Slightly Suspicious (0), ECG: Normal (0), Age: > 45 and < 65 years (1), Risk Factors: 1 or 2 risk factors (1), [Hypercholesterolemia] [Hypertension] Troponin: < or = 1 x Normal Limit (0), Total Score = 2. Data reviewed: vital signs, nurses notes, old medical records, lab test result(s), cardiac enzymes, CBC, electrolytes, EKG, radiologic studies, plain films. Data interpreted: Pulse oximetry: on room air is 100 %. Interpretation: normal. Counseling: I had a detailed discussion with the patient and/or guardian regarding: the historical points, exam findings, and any diagnostic results supporting the discharge/admit diagnosis, the presence of at least one elevated blood pressure reading (>120/80) during this emergency department visit, lab results, radiology results, the need for further work-up and treatment in the hospital. Response to treatment: the patient's symptoms have mildly improved after treatment. 22:30 Patient medically screened. [facility] 08/06 20:06 Order name: Basic Metabolic Panel; Complete Time: 21:46 [facility] 08/06 20:06 Order name: CBC with Diff [facility] 08/06 20:06 Order name: LFT's; Complete Time: 21:46 [facility] 08/06 20:06 Order name: Magnesium; Complete Time: 21:46 [facility] 08/06 20:06 Order name: NT PRO-BNP; Complete Time: 21:46 [facility] 08/06 20:06 Order name: PT-INR; Complete Time: 20:59 [facility] 08/06 20:06 Order name: Troponin HS; Complete Time: 21:46 [facility] 08/06 20:07 Order name: Lipase; Complete Time: 21:46 [facility] 08/06 20:32 Order name: COVID-19 SARS RT PCR (Document "Date of Onset" if Symptomatic) [facility] 08/06 21:47 Order name: Type And Screen [facility] 08/06 21:47 Order name: Ferritin [facility] 08/06 21:47 Order name: Iron Level [facility] 08/06 21:47 Order name: TIBC [facility] 08/06 20:06 Order name: XRAY Chest (1 view); Complete Time: 21:46 [facility] 08/06 20:06 Order name: EKG; Complete Time: 20:07 [facility] 08/06 20:06 Order name: Cardiac monitoring; Complete Time: 23:35 [facility] 08/06 20:06 Order name: EKG - Nurse/Tech; Complete Time: 20:36 [facility] 08/06 20:06 Order name: IV Saline Lock; Complete Time: 21:00 [facility] 08/06 20:06 Order name: Labs collected and sent; Complete Time: 21:00 [facility] 08/06 20:06 Order name: O2 Per Protocol; Complete Time: 21:00 [facility] 08/06 20:06 Order name: O2 Sat Monitoring; Complete Time: 21:00 [facility] 08/06 21:48 Order name: LDH [facility] 08/06 21:50 Order name: Type and Screen [facility] 08/06 22:16 Order name: CBC Smear Scan [facility] 08/06 22:42 Order name: Urine Dipstick-Ancillary [facility] 08/06 22:44 Order name: Urine --Ancillary (enter results) 08/06 22:50 Order name: Urine --Ancillary [facility] 08/06 20:06 Order name: Urine Dipstick-Ancillary (obtain specimen); Complete Time: 23:35 [facility] 08/06 20:06 Order name: Urine Test (obtain specimen); Complete Time: 23:35 [facility] 08/06 21:47 Order name: Consent for Blood Transfusion; Complete Time: 23:34 [facility] 08/06 21:47 Order name: Transfuse la EC:08 Rate is 87 beats/min. Rhythm is regular, Normal Sinus Rhythm with No ectopy. QRS [place] [facility] is Normal. VA interval is normal. QRS interval is normal. QT interval is normal. No Q waves. T waves are Normal. No ST changes noted. Clinical impression: Normal ECG. Administered Medications: 21:06 Drug: Zofran (Ondansetron) 4 mg Route: IVP; Site: left antecubital; ke1 21:07 Drug: morphine 2 mg Route: IVP; Site: left antecubital; 1 Disposition Summary: 08/06/21 22:30 Hospitalization Ordered Hospitalization Status: Observation [facility] Provider: Kiet March Location: Telemetry/MedSurg (observation) [facility] Condition: Stable [facility] Problem: new [facility] Symptoms: have improved [facility] Bed/Room Type: Standard [facility] Room Assignment: 203(08/06/21 23:21) lp1 Diagnosis - Chest pain, unspecified mh7 - Anemia, unspecified - symptomatic [facility] Forms: - Medication Reconciliation Form [facility] - SBAR form [facility] Signatures: Dispatcher [employer] EDMS Sharmin Sher, RN RN lp1 Neymar Hallman, FOOD CART ATTENDANT-C FOOD CART ATTENDANT-Cla1 Trevor Boyd MD MD 7 Kristy Graham RN RN ke1 Corrections: (The following items were deleted from the chart) : 22:30 [facility] lp1
[2021-08-06 22:42] LABS: Urine Blood Negative (Negative); Urine Glucose Negative (Negative); Urine Protein Negative (Negative); Urine Specific Gravity 1.025 (1.005-1.030); Urine pH 6.5 (5.0-7.0)
[2021-08-06 22:50] LABS: Urine Specific Gravity/Preg 1.025 (1.005-1.030)
--- NOTE | 2021-08-06 23:12 | P.HP ---
Certification for Inpatient Patient admitted to: Observation With expected LOS: <2 Midnights Patient will require the following post-hospital care: None Practitioner: I am a practitioner with admitting privileges, knowledge of patient current condition, hospital course, and medical plan of care. Services: Services provided to patient in accordance with Admission requirements found in Title 42 Section 412.3 of the Code of Federal Regulations Patient History Date of Service: 08/06/21 Reason for admission: Symptomatic anemia History of Present Illness: 46-year-old female patient with history of severe iron deficiency anemia, CVA, hypertension presents the emergency department for chest pain. She reports that she is being treated on outpatient basis for severe iron deficiency anemia has had extensive work-up is supposed be getting outpatient iron infusions but her insurance did not cover it so she stopped seeking further treatment at that time, has not been taking oral iron supplements either. She was evaluated in the emergency department her initial troponin was negative hemoglobin 6.0 hematocrit 20.[address] elevation chest x-ray without any acute findings. Patient with symptomatic anemia, chest pain will admit under observation for blood transfusion, ACS rule out. Allergies No Known Allergies Allergy (Verified 06/06/17 17:33) Home Medications: Topiramate [Topamax] 25 mg PO DAILY PRN 02/06/12 Iron/FA/Vit B-Com W/C [Hemocyte Plus*] 106 mg PO BID 06/06/17 - Past Medical/Surgical History Diabetic: No -: Severe iron deficiency anemia -: migrains -: cva 2009 -: hernia -: hernia repair -: fibroids removed Psychosocial/ Personal History: She lives at home with her family - Family History Family History: Reviewed- Non-Contributory - Social History Smoking Status: Never smoker Alcohol use: Yes CD- Drugs: No Caffeine use: Yes Place of Residence: Home Review of Systems 10-point ROS is otherwise unremarkable Respiratory: Shortness of Breath Cardiovascular: Chest Pain, As per HPI Physical Examination - Physical Exam General: Alert, In no apparent distress, Oriented x3 HEENT: Atraumatic, PERRLA, Other (MM pale), EOMI, Sclerae nonicteric Neck: Supple, 2+ carotid pulse no bruit, No LAD, Without JVD or thyroid abnormality Respiratory: Clear to auscultation bilaterally, Normal air movement Cardiovascular: Regular rate/rhythm, Normal S1 S2 Capillary refill: <2 Seconds Gastrointestinal: Normal bowel sounds, No tenderness Musculoskeletal: No tenderness Integumentary: No rashes Neurological: Normal speech, Normal strength at 5/5 x4 extr, Normal tone, Normal affect - Studies Laboratory Data (last 24 hrs) 08/06/21 20:32: PT 12.3, INR 1.12 08/06/21 20:32: WBC 6.0, Hgb 6.0 L*, Hct 20.8 L*, Plt Count 440 H 08/06/21 20:32: Sodium 140, Potassium 3.7, BUN 12, Creatinine 0.80, Glucose 116 H, Magnesium 2.0, Total Bilirubin 0.2, AST 14 L, ALT 20, Alkaline Phosphatase 57, Lipase 144 Assessment and Plan - Plan Assessment: Symptomatic severe iron deficiency anemia Chest pain rule out ACS History of CVA Hypertension Plan: Symptomatic severe iron deficiency anemia: Transfuse one unit PRBC, SASHA labs ordered and pending, may benefit with IV iron. Denies emesis, melena or hematochezia. Does report that she has regular menstrual cycles which used to be heavier but have improved has not been compliant with her home medications iron etc. She supposed be on IV iron infusions but her insurance apparently declined to pay for them. Recheck H&H 2 hours after transfusion Chest pain rule out ACS: Jaime troponins most likely related to severe iron deficiency anemia monitor on telemetry. Will consult cardiology if necessary. History of CVA: Continue home meds Hypertension: Continue home meds DVT PPX: SCD Code status: Full Discharge Plan: Home Plan to discharge in: 24 Hours - Advance Directives Does patient have a Living Will: No Does patient have a Durable POA for Healthcare: No - Code Status/Comfort Care Code Status Assessed: Yes (Full code) Critical Care: No Time Spent Managing Pts Care (In Minutes): 55
[2021-08-06 23:32] LABS: Ferritin 3.6 ng/mL (8-388)
[2021-08-07] MEDS: MORPHINE 2 MG/ML SYR IV PRN ×2 (01:12→09:06)
[2021-08-07] MEDS ORDERED: NA CHLORIDE 0.9% 250 ML ONE (02:01)
[2021-08-07 02:46] VITALS: BMI 31.0
[2021-08-07] MEDS ORDERED: ONDANSETRON 4 MG/2 ML VIAL IV PRN (03:00)
[2021-08-07 04:15] VITALS: O2SAT 96
[2021-08-07 07:46] LABS: Absolute Lymphocytes (CBC) 1.2 K/uL (0.7-4.9); Hematocrit 24.3 % (36.0-45.0); Lymphocytes % 26.1 % (15.3-44.8); MPV 8.2 fL (7.6-11.3); RBC Red Blood Cell Count 3.95 M/uL (3.86-4.86)
[2021-08-07] MEDS ORDERED: FE SULF/FA/VIT B COMP & C TAB PO SCH (08:00)
[2021-08-07 08:11] LABS: ALT/SGPT 17 U/L (12-78); AST/SGOT 11 U/L (15-37); Albumin 3.1 g/dL (3.4-5.0); Alkaline Phosphatase 55 U/L (45-117); BUN Blood Urea Nitrogen 9 mg/dL (7-18); Bicarbonate 26 mmol/L (21-32); Bilirubin Total 0.4 mg/dL (0.2-1.0); Glomerular Filtration Rate > 90 mL/min (=/>90); Glucose Level 96 mg/dL (74-106); Potassium 3.9 mmol/L (3.5-5.1); Protein, Total 7.1 g/dL (6.4-8.2); Sodium Level 140 mmol/L (136-145); Troponin High Sensitivity 5.6 pg/mL (<58.9)
[2021-08-07 08:31] VITALS: BP 133/55; TEMP 97.2
--- NOTE | 2021-08-07 09:23 | EKG ---
Test Date: 2021-08-06 Test Time: 19:50:40 Marketing Communication Manager: BRI MEASUREMENT RESULTS: Intervals: Rate: 87 [place]: 134 QRSD: 74 QT: 360 QTc: 433 [place]: P: 54 [place]: 134 QRS: 22 T: 30 INTERPRETIVE STATEMENTS: Normal sinus rhythm Normal ECG Compared to ECG 04/08/2019 12:16:10 No significant changes Electronically Signed On 08-07-21 09:22:17 CDT by Ernesto Daniel
--- NOTE | 2021-08-07 11:29 | P.DS ---
Admission Date: 08/06/21 Discharge Date: 08/07/21 Disposition: ROUTINE DISCHARGE Discharge Condition: FAIR Reason for Admission: Symptomatic anemia - Problems (1) Iron deficiency Current Visit: Yes Status: Acute (2) Symptomatic anemia Current Visit: No Status: Acute Brief History of Present Illness: 46-year-old female patient with history of severe iron deficiency anemia, CVA, hypertension presented to the emergency department for chest pain. She reports that she is being treated on outpatient basis for severe iron deficiency anemia has had extensive work-up is supposed be getting outpatient iron infusions but her insurance did not cover it so she stopped seeking further treatment at that time, has not been taking oral iron supplements either. She was evaluated in the emergency department her initial troponin was negative hemoglobin 6.0 hematocrit 20.[address] elevation chest x-ray without any acute findings. Patient with symptomatic anemia, chest pain will admit under observation for blood transfusion, ACS rule out. Hospital Course: Patient placed on observation. Troponin trended negative. She was given 1 unit PRBC transfusion. Her hemoglobin up to 7.2. Patient with iron deficiency anemia, with low iron level. She was planned for IV iron infusion but she did not receive the treatment due to insurance issues. Patient informed to follow- up with her PCP for arrangement for the IV iron. Meanwhile she is prescribed iron polysaccharide for iron deficiency anemia. She is currently asymptomatic, ACS ruled out. Patient is deemed stable for discharge. Vital Signs/Physical Exam: Temp Pulse Resp BP Pulse Ox 97.2 F 69 18 133/55 L 96 08/07/21 08:00 08/07/21 08:00 08/07/21 09:06 08/07/21 08:00 08/07/21 09:06 General: Alert, In no apparent distress, Oriented x3 HEENT: Mucous membr. moist/pink Neck: Supple, JVD not distended Respiratory: Clear to auscultation bilaterally, Normal air movement Cardiovascular: No edema, Regular rate/rhythm, Normal S1 S2 Gastrointestinal: Soft and benign, Non-distended Musculoskeletal: No swelling Integumentary: No cyanosis Laboratory Data at Discharge: WBC 4.7 K/uL (4.3-10.9) D 08/07/21 07:25 Hgb 7.2 g/dL (12.0-15.0) L 08/07/21 07:25 Hct 24.3 % (36.0-45.0) L D 08/07/21 07:25 Plt Count 429 K/uL (152-406) H 08/07/21 07:25 PT 12.3 SECONDS (9.5-12.5) 08/06/21 20:32 INR 1.12 08/06/21 20:32 Sodium 140 mmol/L (136-145) 08/07/21 07:25 Potassium 3.9 mmol/L (3.5-5.1) 08/07/21 07:25 BUN 9 mg/dL (7-18) 08/07/21 07:25 Creatinine 0.69 mg/dL (0.55-1.3) 08/07/21 07:25 Glucose 96 mg/dL (74-106) 08/07/21 07:25 Magnesium 2.0 mg/dL (1.8-2.4) 08/06/21 20:32 Total Bilirubin 0.4 mg/dL (0.2-1.0) 08/07/21 07:25 AST 11 U/L (15-37) L 08/07/21 07:25 ALT 17 U/L (12-78) 08/07/21 07:25 Alkaline Phosphatase 55 U/L (45-117) 08/07/21 07:25 Lipase 144 U/L (73-393) 08/06/21 20:32 Home Medications: Topiramate [Topamax] 25 mg PO DAILY PRN 02/06/12 Atorvastatin Calcium 10 mg PO BEDTIME 08/07/21 Clopidogrel Bisulfate [Plavix] 75 mg PO DAILY PRN 08/07/21 Iron Polysaccharide Complex [Polysaccharide Iron] 150 mg PO BID #60 capsule 08/07/21 Losartan Potassium 25 mg PO DAILY 08/07/21 Meclizine HCl 12.5 mg PO TID PRN 08/07/21 New Medications: Iron Polysaccharide Complex [Polysaccharide Iron] 150 mg PO BID #60 capsule Diet: Regular Activity: Ad keli Followup: Unknown,U [Primary Care Provider] - 1 Week
== END 2021-08-07 12:20 | disposition home or self-care (01) ==
LOC: ER 19:42 → ERHOLD 22:32 → 2ND 23:43
PROVIDERS: ADMIT Internal Medicine; ATTEND Internal Medicine
PROC: 30233N1 Transfusion of Nonautologous Red Blood Cells into Peripheral Vein, Percutaneous Approach (ICD-10-PCS; principal; 2021-08-07)
DX: D50.9 Iron deficiency anemia, unspecified (principal); R07.9 Chest pain, unspecified; I10 Essential (primary) hypertension; G43.909 Migraine, unspecified, not intractable, without status migrainosus; Z91.14 Patient's other noncompliance with medication regimen; Z86.73 Personal history of transient ischemic attack (TIA), and cerebral infarction without residual deficits; Z20.822 Contact with and (suspected) exposure to COVID-19
CPT/HCPCS: 93005; 85025 ×2; 80048; 36415; 86900; 83735; 86850; 83615; 81025; 85610; 86901; 80076; 81003; 84484 ×3; 82728; 83690; 83540; 80053; 83880; 84466; 71045; 96375; 96374; 99284; 36430; U0003; J2270 ×3; P9016; J7050; J2405; G0378 ×2